=== PATIENT | female | born 1950 | race Caucasian/White ===

== ENCOUNTER 2018-01-06 10:48 | Emergency (ER) | payer MEDICARE, OTHER, SELFPAY ==
[2018-01-06 11:02] VITALS: BP 160/86; PULSE 86; RESP 16; TEMP 36.5; O2SAT 100; BMI 23.2
--- NOTE | 2018-01-06 11:04 | ED.NEUROSD ---
HPI - Neuro Symptoms/Deficit General Chief Complaint: Neuro Symptoms/Deficit Stated Complaint: HIGH BP, EYE IS BULGING Time Seen by Provider: 01/06/18 10:52 Source: patient Mode of arrival: ambulatory Limitations: no limitations History of Present Illness HPI Narrative: Patient is a 67-year-old female who is otherwise healthy here for evaluation of numbness on the right side of her face. She also states that she feels like her right eye is ?bulging ?and also states that she feels like it is swelling under her right eye. She reports that these symptoms were fairly sudden onset. Occurred approximately 1 hr prior to arrival here in the ER. She was sitting at [employer] at the time. She denies any other symptoms. She says that things have not changed since she started having the symptoms. No ear pain no headache no vision changes no sore throat no problems breathing no problems talking no upper or lower extremity symptoms. Has never had anything like this before. She states that her blood pressure was high at the time of the onset of the symptoms. Related Data Home Medications Medication Instructions Recorded Confirmed No Known Home Medications 01/06/18 01/06/18 Allergies Allergy/AdvReac Type Severity Reaction Status Date / Time No Known Drug Allergies Allergy Verified 01/06/18 11:32 Review of Systems Constitutional Denies fatigue, Denies fever(s), Denies frequent falls, Denies headache(s) and Denies weakness Eyes Denies blurry vision, Denies diplopia, Denies dry eyes, Denies irritation, Denies itchy eyes and Denies loss of vision Comments: Feels like right eye is bulging ENT Ears, Nose, Mouth, and Throat: Denies vertigo, Denies dizziness, Denies facial pain, Denies headache(s), Denies lip swelling, Denies mouth lesions, Denies mouth pain and Denies disequilibrium Cardiovascular Denies chest pain, Denies syncope, Denies palpitations and Denies dyspnea Respiratory Denies dyspnea Gastrointestinal Gastrointestinal: Denies constipation, Denies diarrhea, Denies nausea and Denies vomiting Genitourinary Denies dysuria Musculoskeletal Denies myalgias, Denies arthralgias, Denies muscle cramps, Reports numbness (Right-sided face) and Denies tingling Integumentary/Breasts Denies rash and Denies wounds Neurologic Denies abnormal movements, Denies abnormal speech, Denies behavioral changes, Denies confusion, Denies vertigo, Denies dizziness, Denies syncope, Denies frequent falls, Denies headache(s), Denies focal weakness, Denies loss of vision, Denies memory loss, Reports numbness (Right-sided face), Denies other visual disturbances, Denies radicular pain, Denies sensory deficit, Denies tingling, Denies disequilibrium and Denies weakness Psychiatric Denies behavioral changes, Denies confusion and Denies memory loss Endocrine Denies fatigue and Denies palpitations Hematologic/Lymphatic Denies easy bleeding and Denies easy bruising Allergic/Immunologic Denies urticaria, Denies itchy eyes and Denies lip swelling PFSH Medical History Healthy adult (Acute) Social History Smoking Status: Never smoker Comment: Reviewed patient's past medical surgical family and social history Exam Initial Vital Signs Initial Vital Signs: Vital Signs Temperature 97.7 F 01/06/18 11:02 Pulse Rate 86 01/06/18 11:02 Respiratory Rate 16 01/06/18 11:02 Blood Pressure 160/86 H 01/06/18 11:02 Pulse Oximetry 100 01/06/18 11:02 Const General: cooperative, healthy appearing, comfortable, well developed, well groomed and No acute distress Orientation: alert, awake and oriented x3 HENMT Head: normal to inspection, normocephalic and atraumatic Ears: hearing grossly normal bilaterally Face and sinus: normal facial exam Eyes Pupils: PERRL EOM: EOM intact bilaterally and No nystagmus Resp Effort & Inspection: normal respiratory effort Auscultation: clear to auscultation bilaterally Cardio Rate: regular rate Rhythm: regular rhythm Heart Sounds: no murmurs Pulses: radial pulses present GI Inspection: non-distended Palpation: soft, No firm and No tender Skin Lesions: no lesions Rashes: no rashes Neuro General: alert, awake and oriented x3 Cranial Nerves: PERRL, EOM intact bilaterally, facial strength normal, tongue midline, able to elevate shoulders bilaterally and No nystagmus Cognition: normal cognition Speech: speech normal Gait: normal gait Motor: muscle tone normal throughout Other: Patient with decreased sensation to light touch of the right-sided upper portion of her face and midportion of her face. Does regain normal sensation and approximately the mandibular line on the right. Otherwise cranial nerve exam unremarkable. Extrem General: normal to inspection and capillary refill normal Psych Appearance: grossly normal and well kempt Course Orders Ordered: ED Orders 01/06/18 11:05 CT head/brain wo con Stat 01/06/18 11:23 EKG-12 Lead Stat 01/06/18 11:41 Basic Metabolic Panel Stat Complete Blood Count AUTO DIFF Stat Troponin I Stat Vital Signs - 8 hr 01/06/18 11:02 01/06/18 11:30 01/06/18 12:00 Temperature 97.7 F Pulse Rate 86 81 86 Respiratory Rate 16 17 19 Blood Pressure 160/86 H Blood Pressure [Right Arm] 157/76 H 144/76 H Pulse Oximetry 100 100 100 01/06/18 12:37 Temperature Pulse Rate 85 Respiratory Rate 9 L Blood Pressure Blood Pressure [Right Arm] 154/80 H Pulse Oximetry 100 MDM - Neuro Symptoms/Deficit Lab Data Attestation: I reviewed the patient's lab results. Result diagrams: 01/06/18 11:41 01/06/18 11:41 Lab Results 01/06/18 01/06/18 Range/Units 11:41 11:41 WBC 4.0 L (4.5-11.0) X10^3/uL RBC 4.41 (4.0-5.2) X10^6/uL Hgb 14.1 (12.0-16.0) g/dL Hct 41.6 (36-46) % MCV 94.4 (80-100) fL MCH 31.9 (26-34) PG MCHC 33.8 (30-36) % RDW 12.2 (11.6-14.8) % Plt Count 277 (150-400) X10^3/uL Neut % (Auto) 63.0 (50-75) % Lymph % (Auto) 23.7 L (25-40) % [place] % (Auto) 10.3 (3-14) % Eos % (Auto) 1.2 L (2-4) % Baso % (Auto) 1.8 (0-2) % Neut # (Auto) 2500 L (1170-3808) /uL Sodium 140 (137-145) mmol/L Potassium 5.0 (3.4-5.1) mmol/L Chloride 101 (98-107) mmol/L Carbon Dioxide 33 H (22-32) mmol/L BUN 14 (7-17) mg/dL Creatinine 0.90 (0.52-1.04) mg/dL Estimated GFR > 60.0 (>60) mL/min BUN/Creatinine Ratio 15.6 (6-22) Glucose 96 (80-110) mg/dL Calcium 9.4 (8.4-10.2) mg/dL Troponin I < 0.012 (0.01-0.034) ng/mL Imaging Data CT scan - head: Radiologist's impression: PROCEDURE: CT HEAD/BRAIN WO CON INDICATIONS: Right-sided facial numbness TECHNIQUE: Noncontrast 4.5 mm thick angled axial sections acquired from the foramen magnum to the vertex, with coronal and sagittal reformats. For radiation dose reduction, the following was used: automated exposure control, adjustment of mA and/or kV according to patient size. COMPARISON: None. FINDINGS: Image quality: Excellent. CSF spaces: Basal cisterns are patent. No extra-axial fluid collections. The ventricles are symmetric in size and shape. Brain: No intracranial bleeds or masses. There is cerebral volume loss for age, with resultant ventricular and sulcal prominence. There are periventricular and deep white matter chronic small vessel ischemic changes. There is intracranial internal carotid artery atherosclerosis. Skull and face: Calvarium and visualized facial bones appear intact, without suspicious lesions. Sinuses: Visualized sinuses and mastoids are clear. IMPRESSION: No acute intracranial disease process. Dictated by: Darby Doyle MD, PhD on 01/06/2018 at 12:02 Approved by: Darby Doyle MD, PhD on 01/06/2018 at 12:03 ECG Data Attestation: I personally reviewed and interpreted this ECG as follows: Prior ECG tracings: not available for review Interpretation: Sinus rhythm Ventricular rate is 76 Occasional PVCs Normal QRS Normal QTC No ST T wave changes MDM Narrative Medical decision making narrative: Head CT is unremarkable. EKG was unremarkable. Labs were unremarkable. Patient has isolated right sided facial nerve numbness to palpation. Rest of her neuro exam was unremarkable. Upon my re-evaluation after the head CT patient reports that her symptoms have greatly improved if not resolved. We had a long discussion regarding her symptoms and her high blood pressure. Low concern for CVA. Considered a TIA due to the focal neuro changes. No rashes consistent with zoster. Not tender over the right temporal artery. Will start the patient on an aspirin. She has a follow-up with her primary doctor at the beginning of next month. She was given return precautions. Her was at bedside for these discussions. They both expressed understanding and agreement with plan. Discharge Plan Departure Patient Disposition: Home, Self-Care Clinical Impression: Right facial numbness Instructions: DI for Numbness/tingling Activity Restrictions/Additional Instructions: Keep you are follow-up appointment that you have scheduled next month your primary doctor. Recommend that you start taking an aspirin on a daily basis. Return to the emergency department for any new or worsening symptoms. Prescriptions: No Action No Known Home Medications RF: 0
[2018-01-06 11:30] VITALS: BP 157/76; PULSE 81; RESP 17; O2SAT 100
[2018-01-06 11:52] LABS: Add Manual Diff / Slide Review NO; Basophils Percent Auto 1.8 % (0-2); Eosinophils Percent Auto 1.2 % (2-4); Hematocrit 41.6 % (36-46); Hemoglobin 14.1 g/dL (12.0-16.0); Lymphocytes Percent Auto 23.7 % (25-40); Mean Corpuscular HGB Conc 33.8 % (30-36); Mean Corpuscular Hemoglobin 31.9 PG (26-34); Mean Corpuscular Volume 94.4 fL (80-100); Monocytes Percent Auto 10.3 % (3-14); Neutrophils Absolute Auto 2500 /uL (3000-5900); Platelet Count 277 X10^3/uL (150-400); Red Blood Cell Count 4.41 X10^6/uL (4.0-5.2); Red Cell Distribution Width 12.2 % (11.6-14.8)
[2018-01-06 12:00] VITALS: BP 144/76; PULSE 86; RESP 19; O2SAT 100
[2018-01-06 12:03] LABS: BUN Creatinine Ratio 15.6 (6-22); Blood Urea Nitrogen 14 mg/dL (7-17); Calcium 9.4 mg/dL (8.4-10.2); Carbon Dioxide 33 mmol/L (22-32); Chloride 101 mmol/L (98-107); Estimated Glomerular Filt Rate > 60.0 mL/min (>60); Glucose 96 mg/dL (80-110); Sodium 140 mmol/L (137-145)
[2018-01-06 12:04] LABS: HEMOLYSIS 53 (0-50)
[2018-01-06 12:15] LABS: Troponin I < 0.012 ng/mL (0.01-0.034)
[2018-01-06 12:37] VITALS: BP 154/80; PULSE 85; RESP 9; O2SAT 100
== END 2018-01-06 13:01 | disposition home or self-care (01) ==
PROVIDERS: Emergency Provider Emergency Medicine; PCP Family Medicine Sports Medicine
DX: R20.0 Anesthesia of skin (principal)
CPT/HCPCS: 36591; 70450; 80048; 84484; 85025; 93005; 99283; 99285; 99291